=== PATIENT | male | born 1940 | race Caucasian/White ===

== ENCOUNTER 2017-08-25 12:55 | Emergency (ER) | payer OTHER ==
[~2017-08-25] VITALS: Ht 157.5 cm; Wt 63.5 kg
[2017-08-25 13:06] VITALS: Ht 157.5 cm; Wt 63.5 kg
[2017-08-25 14:10] LABS: BASOPHIL % 0.6 % (0-2); PLATELET COUNT 154 x10^3mcL (130-400); RED CELL DISTRIBUTION WIDTH 14.3 % (11.5-14.5)
[2017-08-25 14:20] LABS: CALCIUM 8.8 mg/dL (8.5-10.1); CARBON DIOXIDE 30.1 mmol/L (21-32); CHLORIDE SERUM 103 mmol/L (98-107); CREATININE SERUM 0.7 mg/dL (0.7-1.3); GLUCOSE SERUM 107 mg/dL (74-106); POTASSIUM SERUM 4.4 mmol/L (3.5-5.1); SODIUM SERUM 139 mmol/L (136-145)
[2017-08-25 14:32] LABS: ALBUMIN 3.7 g/dL (3.4-5.0); ALKALINE PHOSPHATASE 112 U/L (46-116); ALT/SGPT 20 U/L (16-63); AST/SGOT 18 U/L (15-37); BILIRUBIN TOTAL 0.6 mg/dL (0.20-1.00); LIPASE 93 IU/L (73-393); TOTAL PROTEIN, SERUM 6.8 g/dL (6.4-8.2)
[2017-08-25 15:47] VITALS: BP 116/79
== END 2017-08-25 15:47 | disposition home or self-care (01) ==
LOC: ED 12:55
PROVIDERS: Emergency Medicine
DX: R53.83 Other fatigue (principal)
CPT/HCPCS: 36415

== ENCOUNTER 2019-03-16 09:02 | Emergency (ER) | payer OTHER ==
[~2019-03-16] VITALS: Ht 157.5 cm; Wt 65.0 kg
[2019-03-16 09:07] VITALS: Ht 157.5 cm; Wt 65.0 kg
[2019-03-16 12:14] VITALS: BP 121/62
== END 2019-03-16 12:14 | disposition home or self-care (01) ==
LOC: ED 09:02
DX: M54.41 Lumbago with sciatica, right side (principal); N39.0 Urinary tract infection, site not specified; Z88.0 Allergy status to penicillin
CPT/HCPCS: J1885; J7030

== ENCOUNTER 2019-03-17 08:11 | Emergency (ER) | payer OTHER ==
[~2019-03-17] VITALS: Ht 157.5 cm; Wt 74.4 kg
[2019-03-17 08:16] VITALS: Ht 157.5 cm; Wt 74.4 kg
[2019-03-17 10:25] LABS: microscopic required? YES; urine erythrocyte TRACE (NEGATIVE)
[2019-03-17 11:13] LABS: CALCIUM 8.3 mg/dL (8.5-10.1); CARBON DIOXIDE 26.4 mmol/L (21-32); CHLORIDE SERUM 103 mmol/L (98-107); CREATININE SERUM 0.5 mg/dL (0.7-1.3); GLUCOSE SERUM 102 mg/dL (74-106); POTASSIUM SERUM 3.7 mmol/L (3.5-5.1); SODIUM SERUM 138 mmol/L (136-145)
[2019-03-17 11:17] LABS: ALKALINE PHOSPHATASE 89 U/L (46-116); ALT/SGPT 23 U/L (16-63); AST/SGOT 18 U/L (15-37); BILIRUBIN TOTAL 0.6 mg/dL (0.20-1.00); URIC ACID 2.9 mg/dL (3.5-7.2)
[2019-03-17 11:18] LABS: ALBUMIN 3.3 g/dL (3.4-5.0); TOTAL PROTEIN, SERUM 6.1 g/dL (6.4-8.2)
[2019-03-17 11:24] LABS: BASOPHIL % 0.3 % (0-2); PLATELET COUNT 161 x10^3mcL (130-400); RED CELL DISTRIBUTION WIDTH 13.7 % (11.5-14.5)
[2019-03-17 12:50] VITALS: BP 112/66
== END 2019-03-17 12:50 | disposition home or self-care (01) ==
LOC: ED 08:11
PROVIDERS: Emergency Medicine
DX: N39.0 Urinary tract infection, site not specified (principal); R59.0 Localized enlarged lymph nodes; Z88.0 Allergy status to penicillin
CPT/HCPCS: 36415; J1885

== ENCOUNTER 2019-03-19 11:39 | Emergency (ER) | payer OTHER ==
[~2019-03-19] VITALS: Ht 157.5 cm; Wt 64.0 kg
[2019-03-19 11:46] VITALS: BP 120/70; Ht 157.5 cm; Wt 64.0 kg
== END 2019-03-19 13:12 | disposition left against medical advice (07) ==
LOC: ED 11:39
DX: Z53.21 Procedure and treatment not carried out due to patient leaving prior to being seen by health care provider (principal)

== ENCOUNTER 2019-03-19 15:13 | Emergency (ER) | payer OTHER ==
[~2019-03-19] VITALS: Ht 157.5 cm; Wt 64.0 kg
[2019-03-19 17:11] VITALS: Ht 157.5 cm; Wt 64.0 kg
[2019-03-19 18:00] LABS: BASOPHIL % 0.4 % (0-2); PLATELET COUNT 157 x10^3mcL (130-400); RED CELL DISTRIBUTION WIDTH 13.9 % (11.5-14.5)
[2019-03-19 18:11] LABS: CALCIUM 8.8 mg/dL (8.5-10.1); CARBON DIOXIDE 24.5 mmol/L (21-32); CHLORIDE SERUM 101 mmol/L (98-107); CREATININE SERUM 0.6 mg/dL (0.7-1.3); GLUCOSE SERUM 115 mg/dL (74-106); POTASSIUM SERUM 3.7 mmol/L (3.5-5.1); SODIUM SERUM 137 mmol/L (136-145)
[2019-03-19 18:15] LABS: ALBUMIN 3.4 g/dL (3.4-5.0); ALKALINE PHOSPHATASE 96 U/L (46-116); ALT/SGPT 29 U/L (16-63); AST/SGOT 27 U/L (15-37); BILIRUBIN TOTAL 1.2 mg/dL (0.20-1.00); LIPASE 53 IU/L (73-393); TOTAL PROTEIN, SERUM 7.1 g/dL (6.4-8.2)
[2019-03-19 20:02] LABS: microscopic required? YES; urine erythrocyte TRACE (NEGATIVE)
[2019-03-19 21:43] VITALS: BP 114/71
== END 2019-03-19 21:43 | disposition home or self-care (01) ==
LOC: ED 15:13
PROVIDERS: Emergency Medicine
DX: K80.20 Calculus of gallbladder without cholecystitis without obstruction (principal); R14.0 Abdominal distension (gaseous)
CPT/HCPCS: 36415; Q0092

== ENCOUNTER 2019-03-19 22:43 | Emergency (ER) | payer OTHER ==
[~2019-03-19] VITALS: Ht 152.4 cm; Wt 64.0 kg
[2019-03-19 23:06] VITALS: Ht 152.4 cm; Wt 64.0 kg
[2019-03-20 02:44] VITALS: BP 128/68
== END 2019-03-20 02:44 | disposition home or self-care (01) ==
LOC: ED 22:43
DX: R10.10 Upper abdominal pain, unspecified (principal); R14.0 Abdominal distension (gaseous); Z88.0 Allergy status to penicillin

== ENCOUNTER 2019-06-25 00:39 | Emergency (ER) | payer OTHER ==
[~2019-06-25] VITALS: Ht 154.9 cm; Wt 58.1 kg
[2019-06-25 00:48] VITALS: Ht 154.9 cm; Wt 58.1 kg
[2019-06-25 01:49] LABS: CARBON DIOXIDE 28.1 mmol/L (21-32); CHLORIDE SERUM 102 mmol/L (98-107); CREATININE SERUM 0.5 mg/dL (0.7-1.3); GLUCOSE SERUM 97 mg/dL (74-106); POTASSIUM SERUM 3.7 mmol/L (3.5-5.1); SODIUM SERUM 136 mmol/L (136-145)
[2019-06-25 01:51] LABS: PLATELET COUNT 174 x10^3mcL (130-400); RED CELL DISTRIBUTION WIDTH 13.7 % (11.5-14.5)
[2019-06-25 01:52] LABS: BASOPHIL % 2.2 % (0-2)
[2019-06-25 01:53] LABS: ALKALINE PHOSPHATASE 102 U/L (46-116); ALT/SGPT 17 U/L (16-63); AMYLASE 36 U/L (25-115); AST/SGOT 14 U/L (15-37); BILIRUBIN TOTAL 0.46 mg/dL (0.20-1.00); LIPASE 153 IU/L (73-393)
[2019-06-25 01:55] LABS: ALBUMIN 2.9 g/dL (3.4-5.0); TOTAL PROTEIN, SERUM 6.1 g/dL (6.4-8.2)
[2019-06-25 05:08] VITALS: BP 119/68
== END 2019-06-25 05:08 | disposition home or self-care (01) ==
LOC: ED 00:39
PROVIDERS: Emergency Medicine
DX: K29.70 Gastritis, unspecified, without bleeding (principal); C85.83 Other specified types of non-Hodgkin lymphoma, intra-abdominal lymph nodes; Z87.19 Personal history of other diseases of the digestive system; Z88.0 Allergy status to penicillin
CPT/HCPCS: J2270; J2405; J2550; J7030

== ENCOUNTER 2019-07-01 14:06 | Emergency (ER) | payer OTHER ==
[~2019-07-01] VITALS: Ht 165.1 cm; Wt 63.5 kg
[2019-07-01 15:12] VITALS: BP 105/75
== END 2019-07-01 15:12 | disposition home or self-care (01) ==
LOC: ED 14:06
DX: K59.00 Constipation, unspecified (principal); K62.89 Other specified diseases of anus and rectum; Z87.19 Personal history of other diseases of the digestive system; Z88.0 Allergy status to penicillin; Z98.890 Other specified postprocedural states

== ENCOUNTER 2019-09-04 03:06 | Emergency (ER) | payer OTHER ==
[~2019-09-04] VITALS: Ht 154.9 cm; Wt 56.2 kg
[2019-09-04 05:34] VITALS: BP 121/74
== END 2019-09-04 05:34 | disposition home or self-care (01) ==
LOC: ED 03:06
DX: R10.816 Epigastric abdominal tenderness (principal); Z87.19 Personal history of other diseases of the digestive system; Z85.72 Personal history of non-Hodgkin lymphomas; Z88.0 Allergy status to penicillin